=== PATIENT | male | born 1940 | race Caucasian/White ===

== ENCOUNTER → 2023-10-06 07:00 | Outpatient (REF) | payer MEDICARE, SELFPAY ==
[2023-10-06 10:12] LABS: % Basophils 1.3 % (0-2); % Eosinophils 7.9 % (0-6); % Immature Granulocytes 0.4 % (0-0.5); % Lymphocytes 25.3 % (20.5-51.1); % Monocytes 9.5 % (1.7-9.3); % Neutrophils 55.6 % (42.2-75.2); Absolute Basophils 0.1 10^3/uL (0-0.2); Absolute Eosinophils 0.6 10^3/uL (0-0.7); Absolute Lymphocytes 1.8 10^3/uL (1.2-3.4); Absolute Monocytes 0.7 10^3/uL (0.1-0.6); Hematocrit 43.4 % (39.0-52.0); Hemoglobin 15.5 g/dL (13.0-18.0); Mean Corp Hgb Conc. 35.7 g/dL (33.0-37.0); Mean Corpuscular Hgb 31.5 pg (27.0-31.0); Mean Corpuscular Volume 88.2 fL (80.0-94.0); Mean Platelet Volume 10.5 fL (7.4-10.4); Nucleated Red Blood Cells % 0 % (-); Platelet Count 179 10^3/uL (130-400); Red Blood Cell Count 4.92 10^6/uL (4.70-6.10); Red Cell Dist. Width 11.5 % (11.5-14.5); White Blood Cell Count 7.2 10^3/uL (4.8-10.8)
[2023-10-06 10:27] LABS: Glycohemoglobin (HgbA1c) 7.7 % (4.0-5.6)
[2023-10-06 10:38] LABS: ALT (SGPT) 31 U/L (0-50); AST (SGOT) 25 U/L (17-59); Alkaline Phosphatase 103 U/L (38-126); Blood Urea Nitrogen 41 mg/dl (9-20); Calcium 9.1 mg/dl (8.4-10.2); Carbon Dioxide 24 mmol/L (22-30); Chloride 105 mmol/L (98-107); Creatine Phosphokinase 74 U/L (55-170); Direct Bilirubin 0.3 mg/dl (0.0-0.4); GGTP 31 U/L (15-73); Glucose 176 mg/dl (70-99); HDL Cholesterol 40 mg/dl; LDL Cholesterol, Calculated 60 mg/dl; Potassium 4.4 mmol/L (3.5-5.1); Sodium 138 mmol/L (135-145); Total Bilirubin 0.5 mg/dl (0.2-1.3); Total Cholesterol 130 mg/dl (50-199); Total Protein 6.5 g/dl (6.3-8.2); Triglyceride 154 mg/dl (10-149); Very Low Density Lipoprotein 30 mg/dl (0-30); Vitamin D, 25-OH*** 26.9 ng/mL (30-80); eGFR 54.85
[2023-10-06 12:03] LABS: Microalbumin, Random Urine <0.6 mg/dl (0.6-1.7)
== END ==
LOC: HWLAB 07:00
PROVIDERS: ATTENDING PHYSICIAN Internal Medicine Endocrinology, Diabetes & Metabolism; FAMILY PHYSICIAN Family Medicine; REFERRING PHYSICIAN Internal Medicine Cardiovascular Disease
DX: E78.00 Pure hypercholesterolemia, unspecified (principal); E78.2 Mixed hyperlipidemia; E11.22 Type 2 diabetes mellitus with diabetic chronic kidney disease; E11.65 Type 2 diabetes mellitus with hyperglycemia; E55.9 Vitamin D deficiency, unspecified; E88.810 Metabolic syndrome
CPT/HCPCS: 36415; 80053; 80061; 82043; 82248; 82306; 82550; 82570; 82977; 83036; 85025

== ENCOUNTER → 2024-01-29 07:22 | Outpatient (REF) | payer MEDICARE, SELFPAY ==
[2024-01-29 09:31] LABS: % Basophils 1.3 % (0-2); % Eosinophils 7.9 % (0-6); % Immature Granulocytes 0.8 % (0-0.5); % Lymphocytes 29.9 % (20.5-51.1); % Monocytes 8.5 % (1.7-9.3); % Neutrophils 51.6 % (42.2-75.2); Absolute Basophils 0.1 10^3/uL (0-0.2); Absolute Eosinophils 0.5 10^3/uL (0-0.7); Absolute Immature Granulocytes 0.1 10^3/uL (0-0.05); Absolute Lymphocytes 1.9 10^3/uL (1.2-3.4); Absolute Monocytes 0.5 10^3/uL (0.1-0.6); Absolute Neutrophils 3.3 10^3/uL (1.4-6.5); Hematocrit 45.4 % (39.0-52.0); Mean Corp Hgb Conc. 35.2 g/dL (33.0-37.0); Mean Corpuscular Hgb 31.8 pg (27.0-31.0); Mean Corpuscular Volume 90.3 fL (80.0-94.0); Mean Platelet Volume 10.4 fL (7.4-10.4); Nucleated Red Blood Cells % 0 % (-); Platelet Count 163 10^3/uL (130-400); Red Blood Cell Count 5.03 10^6/uL (4.70-6.10); Red Cell Dist. Width 11.6 % (11.5-14.5); White Blood Cell Count 6.4 10^3/uL (4.8-10.8)
[2024-01-29 09:44] LABS: ALT (SGPT) 28 U/L (0-50); AST (SGOT) 21 U/L (17-59); Alkaline Phosphatase 101 U/L (38-126); Blood Urea Nitrogen 31 mg/dl (9-20); Calcium 9.2 mg/dl (8.4-10.2); Carbon Dioxide 30 mmol/L (22-30); Chloride 101 mmol/L (98-107); Creatine Phosphokinase 62 U/L (55-170); Glucose 195 mg/dl (70-99); HDL Cholesterol 36 mg/dl; LDL Cholesterol, Calculated 101 mg/dl; Potassium 4.4 mmol/L (3.5-5.1); Sodium 139 mmol/L (135-145); Total Bilirubin 0.4 mg/dl (0.2-1.3); Total Cholesterol 186 mg/dl (50-199); Total Protein 6.4 g/dl (6.3-8.2); Triglyceride 247 mg/dl (10-149); Very Low Density Lipoprotein 49 mg/dl (0-30); eGFR 39.51
[2024-01-29 10:02] LABS: Vitamin D, 25-OH*** 32.4 ng/mL (30-80)
[2024-01-29 11:02] LABS: Glycohemoglobin (HgbA1c) 9.1 % (4.0-5.6)
== END ==
LOC: HWLAB 07:22
PROVIDERS: ATTENDING PHYSICIAN Internal Medicine Endocrinology, Diabetes & Metabolism; FAMILY PHYSICIAN Family Medicine
DX: M79.604 Pain in right leg (principal); M79.605 Pain in left leg; E11.65 Type 2 diabetes mellitus with hyperglycemia; E55.9 Vitamin D deficiency, unspecified; E88.810 Metabolic syndrome
CPT/HCPCS: 36415; 80053; 80061; 82306; 82550; 83036; 85025

== ENCOUNTER → 2024-03-27 07:59 | Outpatient (REF) | payer MEDICARE, SELFPAY ==
[2024-03-27 09:42] LABS: Urine Albumin Negative (Neg - Trace); Urine Bilirubin Negative (Negative); Urine Character Clear (Clear); Urine Color Yellow; Urine Glucose 3+ (Negative); Urine Ketone Negative (Negative); Urine Leukocyte Negative (Negative); Urine Nitrite Negative (Negative); Urine Occult Blood Negative (Negative); Urine Specific Gravity 1.015 (<1.030); Urine Urobilinogen Negative (Neg - 1+)
[2024-03-27 09:46] LABS: % Basophils 0.9 % (0-2); % Eosinophils 7.4 % (0-6); % Immature Granulocytes 0.6 % (0-0.5); % Lymphocytes 24.5 % (20.5-51.1); % Monocytes 10.7 % (1.7-9.3); % Neutrophils 55.9 % (42.2-75.2); Absolute Basophils 0.1 10^3/uL (0-0.2); Absolute Eosinophils 0.5 10^3/uL (0-0.7); Absolute Lymphocytes 1.6 10^3/uL (1.2-3.4); Absolute Monocytes 0.7 10^3/uL (0.1-0.6); Absolute Neutrophils 3.7 10^3/uL (1.4-6.5); Hematocrit 45.4 % (39.0-52.0); Hemoglobin 15.5 g/dL (13.0-18.0); Mean Corp Hgb Conc. 34.1 g/dL (33.0-37.0); Mean Corpuscular Hgb 31.3 pg (27.0-31.0); Mean Corpuscular Volume 91.5 fL (80.0-94.0); Mean Platelet Volume 10.7 fL (7.4-10.4); Nucleated Red Blood Cells % 0 % (-); Platelet Count 175 10^3/uL (130-400); Red Blood Cell Count 4.96 10^6/uL (4.70-6.10); Red Cell Dist. Width 11.4 % (11.5-14.5); White Blood Cell Count 6.7 10^3/uL (4.8-10.8)
[2024-03-27 10:30] LABS: Microalbumin, Random Urine <0.6 mg/dl (0.6-1.7)
[2024-03-27 11:06] LABS: Glycohemoglobin (HgbA1c) 8.3 % (4.0-5.6)
[2024-03-27 11:21] LABS: ALT (SGPT) 31 U/L (0-50); AST (SGOT) 23 U/L (17-59); Albumin 4.1 g/dl (3.5-5.0); Alkaline Phosphatase 92 U/L (38-126); Blood Urea Nitrogen 23 mg/dl (9-20); Calcium 8.8 mg/dl (8.4-10.2); Carbon Dioxide 26 mmol/L (22-30); Chloride 106 mmol/L (98-107); Creatine Phosphokinase 77 U/L (55-170); Glucose 139 mg/dl (70-99); HDL Cholesterol 36 mg/dl; LDL Cholesterol, Calculated 54 mg/dl; Magnesium 2.4 mg/dl (1.6-2.3); Phosphorus 3.4 mg/dl (2.5-4.5); Potassium 4.7 mmol/L (3.5-5.1); Sodium 141 mmol/L (135-145); Total Bilirubin 0.6 mg/dl (0.2-1.3); Total Cholesterol 113 mg/dl (50-199); Total Protein 6.6 g/dl (6.3-8.2); Triglyceride 116 mg/dl (10-149); Uric Acid 6.6 mg/dl (3.5-8.5); Very Low Density Lipoprotein 23 mg/dl (0-30); eGFR > 60.00
[2024-03-27 11:28] LABS: Free T4 1.09 ng/dl (0.78-2.19)
[2024-03-27 11:42] LABS: TSH 4.62 uIU/ml (0.47-4.68)
== END ==
LOC: HWLAB 07:59
PROVIDERS: ATTENDING PHYSICIAN Family Medicine
DX: E78.2 Mixed hyperlipidemia (principal); I10 Essential (primary) hypertension; E07.9 Disorder of thyroid, unspecified; E11.22 Type 2 diabetes mellitus with diabetic chronic kidney disease; D80.4 Selective deficiency of immunoglobulin M [IgM]
CPT/HCPCS: 36415; 80053; 80061; 81003; 82043; 82550; 82570; 83036; 83521; 83735; 84100; 84155; 84156; 84165; 84439; 84443; 84550; 85025; 86335

== ENCOUNTER 2024-08-05 11:24 | Emergency (ER) | payer MEDICARE, SELFPAY ==
[2024-08-05 11:26] VITALS: BP 152/99
--- NOTE | 2024-08-05 11:57 | ED.MUSCINJ ---
HPI-Injury
General
Chief Complaint: Extremity Pain (non-traumatic)
Source: patient
Exam Limitations: none
Time Seen by Provider: 08/05/24 11:37
History of Present Illness-Injury
Initial Injury comments:
84-year-old male not anticoagulated presents complaining of atraumatic right thigh pain. He had similar episode a couple months ago but it resolved. It returned over the past several days. He was seen by his family doctor who ordered ultrasound
and x-rays of his legs but he is yet to get this done. The pain increased. There is no chest pain or breath. The pain is made worse with bearing weight. No leg swelling. No other complaints at this time
Phy Exam
Physical Exam
Physical Exam:
General: Well-appearing male no acute respiratory distress
HEENT: Normocephalic atraumatic
Heart: Regular rate and rhythm
Lungs: Clear no wheeze
Musculoskeletal exam: No reproducible tenderness about the right thigh or leg. Good range of motion to the knee and hip. Negative straight leg raise
Vascular: 2+ DP pulse right foot
Skin is warm no rash
Injury Course
Orders/Labs/Results
Orders:
Orders
08/05/24 11:45
Venous Doppler Lwr Ext Rt [US Periph Venous LOWER Ext RT] Urgent
Comment:
Reason For Exam: pain in leg
08/05/24 11:50
CR Femur - Right Min 2 Vw Urgent
Comment:
Reason For Exam: pain
CR Hip - RT w/wo Pel 2-3 Vw* Routine
Comment:
Reason For Exam: pain
Include a pelvis x-ray?: Yes
CR Lumbar Spine 2 Or 3 Views Urgent
Comment:
Reason For Exam: back pain
MDM/Problems Addressed
Differential Diagnosis Includes:
Right leg pain. Consider radiculopathy versus DVT versus hamstring strain versus degenerative joint disease
X-rays of the lumbar spine hip and femur are pending ultrasound of the right leg is pending
*Critical Care Note
Total Time (30-74mins, 75-104mins- exclusive of procedures): Not Applicable
Update Note
Update Note:
Venous ultrasound negative for DVT. X-ray lumbar spine hip and femur negative for acute fracture but do show degenerative changes. I suspect patient's pain is likely radicular in nature. He is a diabetic and tried prednisone but his blood sugar
increased. Will recommend Tylenol and Motrin. Will also prescribe gabapentin. He will follow-up with his family doctor
ED Attending Note
-
Portions of this chart may have been created with voice recognition software.� Occasional wrong word or��sound alike� substitutions may have occurred due to the inherent limitations of voice recognition software.
Discharge Plan
Departure
Patient Disposition: Home (Routine Discharge)
Date of Disposition: 08/05/24
Time of Disposition: 13:51
Patient with high blood pressure during this ER visit?: No
Discharge Problem:
Radiculopathy
Instructions: Muscle and Bone Pain (DC)
Prescriptions:
New
gabapentin 300 mg capsule
300 mg PO BID Qty: 14 0RF
No Action
metformin 500 MG tablet
500 mg PO TID
buspirone 10 MG tablet
10 mg PO DAILY
finasteride 5 MG tablet
5 mg PO DAILY
Ramipril
2.5 mg PO DAILY
acetaminophen [Tylenol Extra Strength] 500 MG tablet
1,000 mg PO TID Qty: 0 0RF
tamsulosin 0.4 MG capsule
0.4 mg PO DAILY Qty: 0 0RF
metoprolol tartrate 25 MG tablet
25 mg PO BID Qty: 0 0RF
polyethylene glycol 3350 17 GRAMS powder in packet
17 grams PO DAILYPRN PRN (Reason: constipation) Qty: 0 0RF
aspirin 325 MG tablet,delayed release (DR/EC)
325 mg PO DAILY Qty: 0 0RF
oxycodone 5 MG tablet
5 mg PO Q4HPRN PRN (Reason: mild pain) Qty: 0 0RF
Referrals:
Charanjit Celeste, DO [Family Provider] -
Activity Restrictions/Additional Instructions:
Continue with Tylenol and ibuprofen for pain. Use gabapentin as directed. Follow-up with your family doctor or orthopedic doctor
Interventions
Interventions:
*Risk Screen - Suicide Last Done: 08/05/24 11:26
*General Assessment Last Done: 08/05/24 11:26
*Neglect/Abuse Screening Last Done: 08/05/24 11:56
*ED- Fall Risk Assessment Last Done: 08/05/24 11:56
*ED COVID-19 Vaccine History Last Done: 08/05/24 11:56
ED-Musculoskeletal Assessment Last Done: 08/05/24 11:56
Discharge Date and Time
Print Language: LAO
== END 2024-08-05 14:03 | disposition home or self-care (01) ==
LOC: EMR 11:24
PROVIDERS: EMERGENCY PHYSICIAN Emergency Medicine; FAMILY PHYSICIAN Family Medicine
DX: M54.10 Radiculopathy, site unspecified (principal)
CPT/HCPCS: 99285; 72100; 73502; 73552; 93971

== ENCOUNTER → 2024-10-04 10:28 | Outpatient (REF) | payer MEDICARE, SELFPAY ==
[2024-10-04 13:24] LABS: Glucose 169 mg/dl (70-99)
[2024-10-04 13:59] LABS: Microalbumin, Random Urine <0.6 mg/dl (0.6-1.7)
[2024-10-04 14:06] LABS: Glycohemoglobin (HgbA1c) 9.4 % (4.0-5.6)
== END ==
LOC: HWLAB 10:28
PROVIDERS: ATTENDING PHYSICIAN Family Medicine
DX: E11.22 Type 2 diabetes mellitus with diabetic chronic kidney disease (principal)
CPT/HCPCS: 36415; 82043; 82570; 82947; 83036